=== PATIENT | female | born 1970 | race Caucasian/White ===

== ENCOUNTER 2019-10-10 17:07 | Emergency (ER) | payer OTHER ==
[~2019-10-10] VITALS: Ht 162.6 cm; Wt 62.1 kg
[~2019-10-10 17:07] MED LIST: ALPRAZOLAM 0.0.25 MG PO
[2019-10-10 17:56] LABS: MCH 20.3 pg (26.0-34.0)
[2019-10-10 17:58] LABS: HEMATOCRIT 28.3 % (37.0-47.0); HEMOGLOBIN 8.4 gm/dL (12.0-15.0); MCHC 29.8 g/dL (28.0-37.0); PLATELET COUNT 332 thou/uL (150-400); RBC 4.16 mil/uL (4.20-5.00); RDW 32.3 % (10.5-14.5); WBC 5.5 thou/uL (4.0-11.0)
[2019-10-10] MEDS ORDERED: IRON159 MG PO (18:03)
[2019-10-10 18:12] LABS: MAGNESIUM 1.9 mg/dL (1.8-2.4); TROPONIN-I <0.06 ng/mL (<0.06)
[2019-10-10 18:14] LABS: CREATININE 0.7 mg/dL (0.6-1.0); POTASSIUM 3.7 mmol/L (3.5-5.1)
[2019-10-10 18:18] LABS: ALBUMIN 4.1 g/dL (3.4-5.0); TOTAL BILIRUBIN 0.2 mg/dL (0.2-1.0); TOTAL PROTEIN 8.1 g/dL (6.4-8.2)
[2019-10-10 18:39] LABS: URINE BILIRUBIN NEGATIVE (Negative); URINE BLOOD 3+ (Negative); URINE COLOR YELLOW; URINE GLUCOSE-RANDOM* NEGATIVE (Negative); URINE KETONES 1+ (Negative); URINE LEUKOCYTES-REFLEX NEGATIVE (Negative); URINE PROTEIN (DIPSTICK) NEGATIVE (Negative); URINE UROBILINOGEN 0.2 E.U./dl (0.2-1.0)
[2019-10-10 18:40] LABS: URINE CLARITY SL HAZY; URINE NITRITE-REFLEX POSITIVE (Negative)
[2019-10-10 18:46] LABS: ABSOLUTE NEUTROPHILS 3.5 thou/uL (1.4-8.2); ANISOCYTOSIS 2+
[2019-10-10 18:47] LABS: HYPOCHROMASIA 1+; MICROCYTES 1+
[2019-10-10 18:53] LABS: BACTERIA-REFLEX >30 Many /HPF (None Seen); SQUAMOUS 4-10 Moderate /LPF (0-3); URINE WBC-REFLEX 0-5 Rare /HPF (0-5)
[2019-10-10 18:54] LABS: CASTS None Seen /LPF (None Seen); CRYSTALS None Seen /LPF (None Seen)
[2019-10-10] MEDS ORDERED: KEFLEX500 M1 PO (19:20)
[2019-10-10 20:10] VITALS: BP 110/59
--- NOTE | 2019-10-11 07:47 | EKG ---
[facility] [place] [address] ELECTROCARDIOGRAM REPORT Name: ARCHANA ORELLANA Room #: DEP [facility]#: [id number] Admission: 10/10/19 Attend Phys: Discharge: 10/10/19 Date of : 68 Report #: [id number] THIS REPORT FOR: cc: Eduardo rOtega MD, Anthony MD Lundgren,Rory Arteaga MD [facility] ~ THIS REPORT FOR: //name// [facility] ED Test Date: 2019-10-10 Test Time: 17:43:23 Pat Name: ARCHANA PEÑA Department: Room: Gender: F [employer]ishing Machine Operator: [facility] : 1970 Requested By: Robert Wheatley Order Number: [id number] MD: Rory Waterman Measurements Intervals [place] Rate: 71 P: 73 UT: 146 QRS: 62 QRSD: 101 T: 62 QT: 412 QTc: 448 Interpretive Statements Sinus rhythm RSR' in V1 or V2, right VCD Compared to ECG 02/02/2013 02:59:45 No significant change was found Electronically Signed On 10-11-2019 7:46:56 CDT by Rory Waterman [email or web address] <ELECTRONICALLY SIGNED> By: Rory Waterman MD, [facility] 10/11/19 0746 1743 1743 Rory Waterman MD, [facility] /EPI
== END 2019-10-10 20:10 | disposition home or self-care (01) ==
LOC: ER 17:07
PROVIDERS: Emergency Medicine
DX: D25.9 Leiomyoma of uterus, unspecified (principal); R11.2 Nausea with vomiting, unspecified; Z86.718 Personal history of other venous thrombosis and embolism; Z79.899 Other long term (current) drug therapy; Z91.040 Latex allergy status; Z88.2 Allergy status to sulfonamides